=== PATIENT | male | born 2000 | race African-American/Black ===

== ENCOUNTER 2020-05-06 15:16 | Emergency (ER) | payer SELFPAY ==
[2020-05-06 21:59] LABS: SARS-CoV-2 MS2 Positive; SARS-CoV-2 N Gene Negative; SARS-CoV-2 S Gene Negative; SARS-CoV-2 by NAA Not Detected (NotDetected); SARS-CoV-2 orf1ab Negative
== END 2020-05-06 15:50 | disposition short-term general hospital (02) ==
LOC: ERS 15:16
DX: Z20.828 Contact with and (suspected) exposure to other viral communicable diseases (principal)
CPT/HCPCS: 87635; 99283; U0003